=== PATIENT | female | born 1945 | race Caucasian/White ===

== ENCOUNTER 2021-12-04 10:48 | Outpatient (CLI) | payer MEDICARE | END 2021-12-04 10:49 | disposition home or self-care (01) | LOC: BICMAMMO 10:48 | PROVIDERS: ATTEND Family Medicine | DX: Z12.31 Encounter for screening mammogram for malignant neoplasm of breast (principal) | CPT/HCPCS: 77063; 77067 ==

== ENCOUNTER 2022-07-10 10:32 | Outpatient (CLI) | payer MEDICARE, OTHER | END 2022-07-10 10:33 | disposition home or self-care (01) | LOC: BICMAMMO 10:32 | PROVIDERS: ATTEND Nurse Practitioner Family | DX: Z13.820 Encounter for screening for osteoporosis (principal); Z78.0 Asymptomatic menopausal state; M81.0 Age-related osteoporosis without current pathological fracture; M85.851 Other specified disorders of bone density and structure, right thigh; M85.852 Other specified disorders of bone density and structure, left thigh | CPT/HCPCS: 77080 ==

== ENCOUNTER 2022-10-24 10:47 | Outpatient (CLI) | payer MEDICARE | END 2022-10-24 10:48 | disposition home or self-care (01) | LOC: RAD 10:47 | PROVIDERS: ATTEND Nurse Practitioner Family | DX: M54.2 Cervicalgia (principal); G89.29 Other chronic pain; M47.816 Spondylosis without myelopathy or radiculopathy, lumbar region; M47.812 Spondylosis without myelopathy or radiculopathy, cervical region | CPT/HCPCS: 72040; 72100 ==

== ENCOUNTER 2023-01-08 09:07 | Outpatient (CLI) | payer MEDICARE ==
[2023-01-08] MEDS ORDERED: Magnevist 469MG/ML 20 ML VIAL ONE (15:22)
== END 2023-01-08 09:08 | disposition home or self-care (01) ==
LOC: BICMRI 09:07
PROVIDERS: ATTEND Nurse Practitioner Family
DX: K76.89 Other specified diseases of liver (principal)
CPT/HCPCS: 74183; 82565; A9579

== ENCOUNTER 2024-01-07 13:24 | Outpatient (CLI) | payer MEDICARE, OTHER | END 2024-01-07 13:25 | disposition home or self-care (01) | LOC: SCSMRI 13:24 → MRI 13:25 | PROVIDERS: ATTEND Internal Medicine Gastroenterology | DX: Z12.11 Encounter for screening for malignant neoplasm of colon (principal); K76.89 Other specified diseases of liver; Z80.0 Family history of malignant neoplasm of digestive organs | CPT/HCPCS: 74183 ==

== ENCOUNTER 2024-07-15 13:32 | Outpatient (CLI) | payer MEDICARE, OTHER | END 2024-07-15 13:33 | disposition home or self-care (01) | LOC: BICMAMMO 13:32 | PROVIDERS: ATTEND Nurse Practitioner Family | DX: Z12.31 Encounter for screening mammogram for malignant neoplasm of breast (principal); Z78.0 Asymptomatic menopausal state; M85.89 Other specified disorders of bone density and structure, multiple sites | CPT/HCPCS: 77063; 77067; 77080 ==

== ENCOUNTER 2025-06-06 11:50 | Outpatient (CLI) | payer MEDICARE ==
[2025-06-08 08:59] LABS: Estimated GFR - POC 75.0
== END 2025-06-06 11:51 | disposition home or self-care (01) ==
LOC: MRI 11:50
PROVIDERS: ATTEND Orthopaedic Surgery
DX: M75.111 Incomplete rotator cuff tear or rupture of right shoulder, not specified as traumatic (principal); K76.89 Other specified diseases of liver
CPT/HCPCS: 36415; 74183; 82565